=== PATIENT | female | born 1935 | race Caucasian/White ===

== ENCOUNTER 2018-12-03 11:32 | Emergency (ER) | payer MEDICARE, BC ==
[~2018-12-03 11:32] MED LIST: AMIODARONE 50 MG/ML 3 ML VIAL IV ONE; ATROPINE SULFATE 0.1 MG/ML 10ML SYRINGE ONE; DEXTROSE 5% IN WATER 50 ML BAG ONE; EPINEPHrine 10 ML SYRINGE (0.1 MG/ML) ONE; NOREPINEPHRINE 1 MG/ML 4 ML VIAL IV ONE; SODIUM BICARB 8.4% 50 ML SYR (1 MEQ/ML) ONE; SODIUM CHLORIDE 0.9% 250 ML BAG ONE
[2018-12-03 11:52] VITALS: PULSE 0; RESP 12
[2018-12-03 12:01] LABS: Albumin 3.4 g/dL (3.5-5.0); Magnesium 2.9 mg/dL (1.6-2.3); Potassium 4.4 mmol/L (3.5-5.1); Total Bilirubin 1.3 mg/dL (0.2-1.3); Total Protein 6.4 g/dL (6.3-8.2)
[2018-12-03 12:15] LABS: Glucose,Whole Blood 197 mg/dL (75-99)
[2018-12-03 12:23] LABS: INR 1.1 (<1.2); Partial Thromboplastin Time 28.6 sec (22.0-30.0); Prothrombin Time 11.3 sec (9.0-12.0)
[2018-12-03 12:32] LABS: D-Dimer 31.77 mg/L FEU (<0.60)
[2018-12-03 12:35] LABS: Basophils # (A) 0.3 k/uL (0-0.2); Basophils % (A) 2 %; Eosinophils # (A) 0.2 k/uL (0-0.7); Eosinophils % (A) 1 %; HCT 48.1 % (34.0-46.0); HGB 14.9 gm/dL (11.4-16.0); Hypochromasia Moderate; Lymphocytes # (A) 4.7 k/uL (1.0-4.8); Lymphocytes % (A) 26 %; MCH 30.8 pg (25.0-35.0); MCV 99.3 fL (80.0-100.0); Mean Platelet Volume 9.1; Monocytes # (A) 1.4 k/uL (0-1.0); Monocytes % (A) 8 %; Neutrophils # (A) 11.1 k/uL (1.3-7.7); Neutrophils % (A) 61 %; Platelet Count 182 k/uL (150-450); RBC 4.84 m/uL (3.80-5.40); RDW 13.3 % (11.5-15.5); WBC 18.1 k/uL (3.8-10.6)
--- NOTE | 2018-12-03 13:19 | ED ---
CPR HPI - General Chief Complaint: Cardiac Arrest/CPR Stated Complaint: Cardiac arrest Time Seen by Provider: 12/03/18 11:32 Source: patient, EMS, RN notes reviewed, old records reviewed Mode of arrival: EMS Limitations: language barrier, altered mental status, physical limitation - History of Present Illness Initial Comments: This 83-year-old female history of CVA/TIA and hypothyroidism who apparently been feeling ill several days ago but then felt better this morning she called her daughter saying she felt dizzy. She apparently went to bed for a short period time got up and wanted a cup of coffee. She then felt very short of breath. EMS was called she was found to be at that time in atrial fibrillation with rapid ventricular response. Upon being loaded into the ambulance the patient went to a cardiac arrest became agonal and did require intubation and CPR and ACLS protocol. The original call apparently was placed to 911 at 10:50 AM. Ambulance crew arrived around 1107 when A. fib RVR was discovered. The cardiac arrest occurred in this area around 11:15 2 11:20 AM. CPR was begun on arrival here patient was not responsive CPR progress. No reports of any falls or other recent illnesses. MD Complaint: collapsed during rest - Related Data Previous Rx's Medication Instructions Recorded Ibuprofen [Motrin] 600 mg PO Q6HR PRN #20 tab 10/17/13 Allergies Allergy/AdvReac Type Severity Reaction Status Date / Time Penicillins Allergy Unknown Verified 10/17/13 20:56 Sulfa (Sulfonamide Allergy Unknown Verified 10/17/13 20:56 Antibiotics) Review of Systems ROS Statement: Those systems with pertinent positive or pertinent negative responses have been documented in the HPI. ROS Other: All systems not noted in ROS Statement are negative. Limitations: ROS unobtainable due to patients medical condition Past Medical History Past Medical History: CVA/TIA, Thyroid Disorder History of Any Multi-Drug Resistant Organisms: None Reported Past Surgical History: Hysterectomy Past Psychological History: No Psychological Hx Reported Smoking Status: Never smoker Past Alcohol Use History: Rare Past Drug Use History: None Reported General Exam - General Exam Comments Initial Comments: This is a well-developed well-nourished unresponsive female Limitations: language barrier, altered mental status, physical limitation General appearance: other (Unresponsive with CPR progress) Head exam: Present: atraumatic Eye exam: Present: other (Pupils fixed at about 4-5 mm unreactive) ENT exam: Present: other (Oral tracheal tube in place) Neck exam: Present: normal inspection, other (No JVD ) Respiratory exam: Present: other (Good aeration with the bag endotracheal tube) Cardiovascular Exam: Present: tachycardia, irregular rhythm, other (Evidence of physical activity indicating A. fib with RVR about 131 pulse was) GI/Abdominal exam: Absent: pulsatile mass, hernia Extremities exam: Present: other (Apparently up on the scene over the left deltoid). Absent: normal capillary refill, pedal edema Back exam: Present: normal inspection Neurological exam: Present: other (Unresponsive) Psychiatric exam: Present: other (Unresponsive) Skin exam: Present: dry Course Vital Signs 12/03/18 11:32 Pulse Rate 0 L Respiratory 12 Rate - Reevaluation(s) Reevaluation #1: 12/03/18 13:15 ACLS protocol was continued upon arrival until pulses obtained with a left clavicle activity. This was maintained for approximately 10 minutes. Which t fly I was able to talk to the patient and his daughter who was with her this morning. Patient subsequently went back into what appear to be a PEA arrest. There were at times good pulses with some blood pressure medications were started including Levophed. During the intermittent episodes of blood pressure and pulse due to the need for pressors I did start a right subclavian central line. The patient did subsequently go back into a pulseless rhythm and ultimately became agonal. The patient visit, and was pronounced at 12:41 PM. Reevaluation #2: 12/03/18 13:19 EKG done after one episode of return of pulses and pressure in a wide-complex rhythm rate of 78 QRS 152 QT since QTC 452/5:15 Right bundle branch block left axis deviation nonspecific inferior changes Reevaluation #3: 12/03/18 13:26 Of note ultrasound and Dopplers were used during the CPR efforts for determining cardiac activity and pulses. Procedures - Central Line Placement Right SC Consent Obtained: emergent situation Patient Placed on Monitor/Pulse Ox: Yes MD Prep: mask, gloves Central Line Prep: Chlorhexidine scrub Local Anesthesia Used: Lidocaine 1% Amount of Anesthesia Used (mls): 3 Ultrasound Used for Placement: No Bloods Obtained for Lab: No Central Line Position: good blood return, sutured in place with 3-0 nylon Dressing Applied: other Patient Tolerated Procedure: no complications Complications: none Medical Decision Making - Medical Decision Making Patient did have prolonged CPR and resuscitation times. Due to multiple episodes of return of spontaneous circulation multiple medication being given to the patient. I did discuss the case with the general medical practitioner's office after talking with Dr. Cantu. Patient will be released he selected home - Lab Data Result diagrams: 12/03/18 11:38 12/03/18 11:38 Lab Results 12/03/18 12/03/18 12/03/18 Range/Units 11:38 11:38 11:38 WBC 18.1 H (3.8-10.6) k/uL RBC 4.84 (3.80-5.40) m/uL Hgb 14.9 (11.4-16.0) gm/dL Hct 48.1 H (34.0-46.0) % MCV 99.3 (80.0-100.0) fL MCH 30.8 (25.0-35.0) pg MCHC 31.0 (31.0-37.0) g/dL RDW 13.3 (11.5-15.5) % Plt Count 182 (150-450) k/uL Neutrophils % 61 % Lymphocytes % 26 % Monocytes % 8 % Eosinophils % 1 % Basophils % 2 % Neutrophils # 11.1 H (1.3-7.7) k/uL Lymphocytes # 4.7 (1.0-4.8) k/uL Monocytes # 1.4 H (0-1.0) k/uL Eosinophils # 0.2 (0-0.7) k/uL Basophils # 0.3 H (0-0.2) k/uL Hypochromasia Moderate PT 11.3 (9.0-12.0) sec INR 1.1 (<1.2) APTT 28.6 (22.0-30.0) sec D-Dimer 31.77 H (<0.60) mg/L FEU Sodium 142 (137-145) mmol/L Potassium 4.4 (3.5-5.1) mmol/L Chloride 105 (98-107) mmol/L Carbon Dioxide 12 L (22-30) mmol/L Anion Gap 25 mmol/L BUN 12 (7-17) mg/dL Creatinine 1.40 H (0.52-1.04) mg/dL Est GFR (CKD-EPI)AfAm 40 (>60 ml/min/1.73 sqM) Est GFR (CKD-EPI)NonAf 35 (>60 ml/min/1.73 sqM) Glucose 319 H (74-99) mg/dL POC Glucose (mg/dL) (75-99) mg/dL POC Glu [employer] Supervisor ID Calcium 9.0 (8.4-10.2) mg/dL Magnesium 2.9 H (1.6-2.3) mg/dL Total Bilirubin 1.3 (0.2-1.3) mg/dL AST 292 H (14-36) U/L ALT 178 H (9-52) U/L Alkaline Phosphatase 87 (38-126) U/L Creatine Kinase 140 H (30-135) U/L Troponin I (0.000-0.034) ng/mL Total Protein 6.4 (6.3-8.2) g/dL Albumin 3.4 L (3.5-5.0) g/dL 12/03/18 12/03/18 Range/Units 11:38 11:46 WBC (3.8-10.6) k/uL RBC (3.80-5.40) m/uL Hgb (11.4-16.0) gm/dL Hct (34.0-46.0) % MCV (80.0-100.0) fL MCH (25.0-35.0) pg MCHC (31.0-37.0) g/dL RDW (11.5-15.5) % Plt Count (150-450) k/uL Neutrophils % % Lymphocytes % % Monocytes % % Eosinophils % % Basophils % % Neutrophils # (1.3-7.7) k/uL Lymphocytes # (1.0-4.8) k/uL Monocytes # (0-1.0) k/uL Eosinophils # (0-0.7) k/uL Basophils # (0-0.2) k/uL Hypochromasia PT (9.0-12.0) sec INR (<1.2) APTT (22.0-30.0) sec D-Dimer (<0.60) mg/L FEU Sodium (137-145) mmol/L Potassium (3.5-5.1) mmol/L Chloride (98-107) mmol/L Carbon Dioxide (22-30) mmol/L Anion Gap mmol/L BUN (7-17) mg/dL Creatinine (0.52-1.04) mg/dL Est GFR (CKD-EPI)AfAm (>60 ml/min/1.73 sqM) Est GFR (CKD-EPI)NonAf (>60 ml/min/1.73 sqM) Glucose (74-99) mg/dL POC Glucose (mg/dL) 197 H (75-99) mg/dL POC Glu Electrical [employer]semblies Supervisor ID Ian Ardon Calcium (8.4-10.2) mg/dL Magnesium (1.6-2.3) mg/dL Total Bilirubin (0.2-1.3) mg/dL AST (14-36) U/L ALT (9-52) U/L Alkaline Phosphatase (38-126) U/L Creatine Kinase (30-135) U/L Troponin I 0.170 H* (0.000-0.034) ng/mL Total Protein (6.3-8.2) g/dL Albumin (3.5-5.0) g/dL Critical Care Time Critical Care Time: Yes Critical Care Time: 75 minutes of critical care time which includes initial presentation history physical labs x-rays prolonged episodes of CPR. Discussed with paramedics discussed with family members on several occasions this did include review of old charting was available review of labs ordered drawn. Discussion with the attending physician and with the general medical practitioner's office this is not include procedure time of placing the right subclavian catheter. This does include documentation. This does include prolonged bedside attendance. Disposition Clinical Impression: Sudden cardiac Disposition: Referrals: Tung Cantu MD [Primary Care Provider] - 1-2 days Preliminary Cause of : Sudden cardiac
== END 2018-12-03 14:41 | disposition expired ==
LOC: EC 11:32
DX: I46.9 Cardiac arrest, cause unspecified (principal); I48.91 Unspecified atrial fibrillation; R41.82 Altered mental status, unspecified; Z88.0 Allergy status to penicillin; Z88.2 Allergy status to sulfonamides; Z86.73 Personal history of transient ischemic attack (TIA), and cerebral infarction without residual deficits
CPT/HCPCS: 36415; 36556; 80053; 82550; 83735; 84484; 85025; 85379; 85610; 85730; 92950; 93005; 99291; 99292